=== PATIENT | male | born 1980 | race Caucasian/White ===

== ENCOUNTER 2021-06-01 12:23 | Emergency (ER) | payer SELFPAY ==
[2021-06-01] MEDS ORDERED: CEPHALEXIN500 MG PO (14:32)
[2021-06-01] MEDS ORDERED: NAPROSYN500 MG PO (14:32)
== END 2021-06-01 14:51 | disposition home or self-care (01) ==
LOC: ER1 12:23
DX: S61.112A Laceration without foreign body of left thumb with damage to nail, initial encounter (principal); X58.XXXA Exposure to other specified factors, initial encounter
CPT/HCPCS: 12002; 73130; 90471; 90714; 96372; 99283; J0690